=== PATIENT | male | born 1960 | race Caucasian/White ===

== ENCOUNTER 2023-06-22 14:25 | Emergency (ER) | payer MEDICAID ==
[~2023-06-22] VITALS: Ht 170.2 cm; Wt 70.0 kg
[2023-06-22 14:51] VITALS: BP 146/83; PULSE 82; RESP 18; TEMP 97.8; O2SAT 98
== END 2023-06-22 22:33 | disposition left against medical advice (07) ==
LOC: ER 14:25
DX: H53.8 Other visual disturbances (principal); Z53.21 Procedure and treatment not carried out due to patient leaving prior to being seen by health care provider
CPT/HCPCS: 99281

== ENCOUNTER 2023-08-08 06:21 | Inpatient (IN) | payer MEDICAID ==
[2023-08-08] VITALS (13 sets, daily range): BP systolic 116–222; BP diastolic 62–76; PULSE 80–101; RESP 14–18; TEMP 96.9–98.7; O2SAT 94–100
[~2023-08-08] VITALS: Ht 170.2 cm; Wt 75.0 kg
[2023-08-08 06:54] LABS: BASOPHILS # (AUTO) 0.1 X10'3 (0-0.2); BASOPHILS % (AUTO) 0.7 % (0-1); EOSINOPHILS # (AUTO) 0.1 X10'3 (0-0.9); EOSINOPHILS % (AUTO) 0.4 % (0-6); HEMATOCRIT 36.6 % (42.0-52.0); LYMPHOCYTES # (AUTO) 1.5 X10'3 (1.1-4.8); MEAN CORPUSCULAR HEMOGLOBIN 28.5 PG (27.0-31.0); MEAN CORPUSCULAR VOLUME 86.3 FL (78-98); MEAN PLATELET VOLUME 7.7 FL (7.4-10.4); MONOCYTES # (AUTO) 1.7 X10'3 (0-0.9); MONOCYTES % (AUTO) 8.7 % (2-12); NEUTROPHILS # (AUTO) 15.9 X10'3 (1.8-7.7); NEUTROPHILS % (AUTO) 82.2 % (42-75); PLATELET COUNT 452 X10'3 (140-440); RED BLOOD COUNT 4.23 X10'6 (4.70-6.10); RED CELL DISTRIBUTION WIDTH 13.9 % (11.5-14.5); WHITE BLOOD COUNT 19.3 X10'3 (4.5-11.0)
[2023-08-08] MEDS ORDERED: ondansetron/PF 4mg/2ml inj IV ONE (06:55)
[2023-08-08] MEDS ORDERED: normal saline 500ml IV soln 500 ML IV ONE (06:55)
[2023-08-08] MEDS ORDERED: morphine 4 MG/ML inj SYRINge IV ONE (06:55)
[2023-08-08] MEDS ORDERED: nitroGLYCERIN 1gm ointment UD TP ONE (06:55)
[2023-08-08 07:07] LABS: ALANINE AMINOTRANSFERASE 32 U/L (12-78); ALBUMIN 3.1 G/DL (3.4-5.0); ALBUMIN/GLOBULIN RATIO 0.7 (1.1-1.5); ALKALINE PHOSPHATASE 105 IU/L (46-116); ANION GAP 11 (8-16); ASPARTATE AMINO TRANSFERASE 13 U/L (10-37); BILIRUBIN,TOTAL 0.6 MG/DL (0.1-1.0); BLOOD UREA NITROGEN 16 MG/DL (7-18); BUN/CREATININE RATIO 16.5 (10.0-20.0); CALCIUM 8.8 MG/DL (8.5-10.1); CHLORIDE 99 MMOL/L (99-107); CREATININE 0.97 MG/DL (0.60-1.10); GLUCOSE 360 MG/DL (70-104); POTASSIUM 3.7 MMOL/L (3.5-5.1); SODIUM 132 MMOL/L (135-145); TOTAL PROTEIN 7.6 G/DL (6.4-8.2); eCRCL 73 ML/MIN; eGFR 78 ML/MIN
[2023-08-08 07:16] LABS: PRO BRAIN NATRIURETIC PEPTIDE 392 PG/ML (0-125)
[2023-08-08] MEDS ORDERED: dexamethasone sod phosphate 10mg/ml inj IV STA (10:17)
[2023-08-08] MEDS ORDERED: albuterol 2.5 MG/3 ML nebule NEB ONE (10:20)
[2023-08-08] MEDS ORDERED: azithromycin/NS 500mg/250ml 250 ML IV ONE (10:20)
[2023-08-08] MEDS ORDERED: CefTRIAXone 2gm/D5W 50ml BAG 50 ML IV ONE (10:20)
[2023-08-08] MEDS ORDERED: morphine 2 MG/ML inj. syringe IV PRN ×2 (11:00)
[2023-08-08] MEDS ORDERED: HYDROcodone/acetaminophen 5mg/325mg tablet PO PRN (11:00)
[2023-08-08] MEDS ORDERED: HYDROcodone/acetaminophen 10/325mg tab PO PRN (11:00)
[2023-08-08] MEDS ORDERED: magnesium 2GM in 50ml NS 50 ML IV PRN (11:00)
[2023-08-08] MEDS ORDERED: magnesium 4gm in 100ml NS 100 ML IV PRN (11:00)
[2023-08-08] MEDS ORDERED: potassium Cl 20 mEq SR tablet PO PRN ×2 (11:00)
[2023-08-08] MEDS ORDERED: potassium Cl 40MEQ/1/2NS 520ml 520 ML IV PRN (11:00)
[2023-08-08] MEDS ORDERED: magnesium Cl slow-release 64mg tablet PO PRN (11:00)
[2023-08-08] MEDS ORDERED: ondansetron/PF 4mg/2ml inj IV PRN (11:00)
[2023-08-08] MEDS ORDERED: acetaminophen 325mg tablet PO PRN ×2 (11:00)
[2023-08-08] MEDS ORDERED: albuterol 2.5 MG/3 ML nebule NEB PRN (11:15)
[2023-08-08] MEDS: normal saline 1000ml 1,000 ML IV SCH (11:20)
--- NOTE | 2023-08-08 12:43 | NUR ---
RT paged for n er bed 3. When RT arrived, pt being transported to stress lab and will be gone for 2 hours. Pt also has RT orders for admit so we will assess the pt when he is done in stress lab. At this time, pt is in no respiratory distress.
[2023-08-08] MEDS ORDERED: aminophylline inj. 10 ML IV ONE (13:09)
[2023-08-08] MEDS ORDERED: regadenoson 0.4mg/5ml syringe IV ONE (13:10)
--- NOTE | 2023-08-08 14:25 | NUR ---
Hospitalist aware of pts BG of 339.
[2023-08-08] MEDS ORDERED: MESSAGE TO PHARMACY PO ONE (14:30)
[2023-08-08] MEDS ORDERED: dextrose 50%-water 50ml dispensing syringe IV PRN ×2 (14:30)
[2023-08-08] MEDS ORDERED: glucagon, human recombinant 1mg kit SUBCUT PRN (14:30)
[2023-08-08] MEDS ORDERED: DEXTROSE 15 GM of carb/4 tabs (each vial/BOTTLE has 4 tablets) PO PRN ×2 (14:30)
--- NOTE | 2023-08-08 16:22 | NUR ---
Paged hospitalist regarding results of stress test, pt has not eaten today and is upset and requesting food.
--- NOTE | 2023-08-08 17:01 | NUR ---
Patient in room ED 3. I have received report from Rosio AGUIAR and had the opportunity to ask questions and assume patient care.
--- NOTE | 2023-08-08 18:42 | NUR ---
Patient in room PCU 3017. I have received report from Mckayla AGUIAR and had the opportunity to ask questions and assume patient care.
[2023-08-08] MEDS: insulin Lispro (HumaLOG) vial - multi-dose SQ SCH ×2 (20:34→23:30)
[2023-08-08] MEDS: enoxaparin 40mg/0.4ml syringe SQ SCH (20:54)
[2023-08-08] MEDS ORDERED: temazepam 15mg capsule PO PRN (21:00)
[2023-08-08] MEDS: insulin glargine (Lantus) pen - multi-dose SQ SCH (23:29)
[2023-08-09] VITALS (9 sets, daily range): BP systolic 112–137; BP diastolic 36–86; PULSE 59–95; RESP 14–18; TEMP 97.5–98.7; O2SAT 90–100
[2023-08-09] MEDS: normal saline 1000ml 1,000 ML IV SCH (04:30)
[2023-08-09 06:16] LABS: BASOPHILS % (AUTO) 0.2 % (0-1); EOSINOPHILS % (AUTO) 0 % (0-6); HEMATOCRIT 34.7 % (42.0-52.0); HEMOGLOBIN 11.4 g/dl (14.0-17.9); LYMPHOCYTES # (AUTO) 1.6 X10'3 (1.1-4.8); MEAN CORPUSCULAR HEMOGLOBIN 28.7 PG (27.0-31.0); MEAN CORPUSCULAR VOLUME 86.9 FL (78-98); MEAN PLATELET VOLUME 8.2 FL (7.4-10.4); MONOCYTES # (AUTO) 1.6 X10'3 (0-0.9); MONOCYTES % (AUTO) 8.9 % (2-12); NEUTROPHILS # (AUTO) 14.4 X10'3 (1.8-7.7); NEUTROPHILS % (AUTO) 81.9 % (42-75); PLATELET COUNT 453 X10'3 (140-440); RED BLOOD COUNT 3.99 X10'6 (4.70-6.10); RED CELL DISTRIBUTION WIDTH 13.9 % (11.5-14.5); WHITE BLOOD COUNT 17.6 X10'3 (4.5-11.0)
[2023-08-09 06:21] LABS: ALANINE AMINOTRANSFERASE 25 U/L (12-78); ALBUMIN 2.6 G/DL (3.4-5.0); ALBUMIN/GLOBULIN RATIO 0.6 (1.1-1.5); ALKALINE PHOSPHATASE 98 IU/L (46-116); ANION GAP 5 (8-16); ASPARTATE AMINO TRANSFERASE 13 U/L (10-37); BILIRUBIN,TOTAL 0.3 MG/DL (0.1-1.0); BLOOD UREA NITROGEN 32 MG/DL (7-18); BUN/CREATININE RATIO 32.7 (10.0-20.0); CALCIUM 8.9 MG/DL (8.5-10.1); CHLORIDE 100 MMOL/L (99-107); CREATININE 0.98 MG/DL (0.60-1.10); SODIUM 131 MMOL/L (135-145); TOTAL CARBON DIOXIDE 25.7 MMOL/L (24-32); TOTAL PROTEIN 6.9 G/DL (6.4-8.2); eCRCL 72 ML/MIN; eGFR 77 ML/MIN
[2023-08-09 06:39] LABS: GLUCOSE 421 MG/DL (70-104)
--- NOTE | 2023-08-09 07:00 | NUR ---
Patient in room PCU 3017. I have received report from Laurie AGUIAR and had the opportunity to ask questions and assume patient care.
--- NOTE | 2023-08-09 07:18 | NUR ---
Problems reprioritized. Patient report given, questions answered & plan of care reviewed with Mckayla AGUIAR.
[2023-08-09] MEDS: azithromycin/NS 500mg/250ml 250 ML IV SCH (07:50)
[2023-08-09] MEDS: CefTRIAXone 2gm/D5W 50ml BAG 50 ML IV SCH (07:50)
--- NOTE | 2023-08-09 07:59 | NUR ---
PAGER ID: [phone] MESSAGE: [phone]. Laurent Carty. Critical glucose of 421. Decreased from 517 and 445 last night. Mckayla [phone]
--- NOTE | 2023-08-09 08:21 | NUR ---
3017-A. Laurent Carty. Is it okay to add Carb Control to patient's diet? It's only heart healthy at this time. Mckayla [id number]
[2023-08-09] MEDS: insulin Lispro (HumaLOG) vial - multi-dose SQ SCH ×3 (09:36→20:26)
[2023-08-09] MEDS: insulin glargine (Lantus) pen - multi-dose SQ SCH (20:25)
[2023-08-09] MEDS: enoxaparin 40mg/0.4ml syringe SQ SCH (20:27)
[2023-08-10] MEDS: normal saline 1000ml 1,000 ML IV SCH (03:00)
[2023-08-10 06:42] LABS: ALANINE AMINOTRANSFERASE 22 U/L (12-78); ALBUMIN 2.6 G/DL (3.4-5.0); ALBUMIN/GLOBULIN RATIO 0.6 (1.1-1.5); ALKALINE PHOSPHATASE 83 IU/L (46-116); ANION GAP 6 (8-16); ASPARTATE AMINO TRANSFERASE 15 U/L (10-37); BILIRUBIN,TOTAL 0.3 MG/DL (0.1-1.0); BLOOD UREA NITROGEN 22 MG/DL (7-18); BUN/CREATININE RATIO 23.7 (10.0-20.0); CALCIUM 8.7 MG/DL (8.5-10.1); CHLORIDE 101 MMOL/L (99-107); CREATININE 0.93 MG/DL (0.60-1.10); GLUCOSE 292 MG/DL (70-104); POTASSIUM 3.8 MMOL/L (3.5-5.1); SODIUM 134 MMOL/L (135-145); TOTAL CARBON DIOXIDE 26.7 MMOL/L (24-32); TOTAL PROTEIN 6.9 G/DL (6.4-8.2); eCRCL 76 ML/MIN; eGFR 82 ML/MIN
--- NOTE | 2023-08-10 06:42 | NUR ---
Patient in room PCU 3017. I have received report from VAN AGUIAR and had the opportunity to ask questions and assume patient care.
[2023-08-10 07:00] VITALS: BP 127/73; PULSE 78; RESP 18; TEMP 97.7; O2SAT 100
[2023-08-10 07:15] LABS: BASOPHILS # (AUTO) 0.1 X10'3 (0-0.2); BASOPHILS % (AUTO) 1.3 % (0-1); EOSINOPHILS # (AUTO) 0.1 X10'3 (0-0.9); EOSINOPHILS % (AUTO) 1.6 % (0-6); HEMATOCRIT 35.4 % (42.0-52.0); HEMOGLOBIN 11.9 g/dl (14.0-17.9); LYMPHOCYTES % (AUTO) 35.7 % (21-51); MEAN CORPUSCULAR HEMOGLOBIN 29.3 PG (27.0-31.0); MEAN CORPUSCULAR HGB CONC 33.6 g/dL (33.0-36.5); MEAN CORPUSCULAR VOLUME 87.3 FL (78-98); MEAN PLATELET VOLUME 8.2 FL (7.4-10.4); MONOCYTES % (AUTO) 11.3 % (2-12); NEUTROPHILS # (AUTO) 4.3 X10'3 (1.8-7.7); NEUTROPHILS % (AUTO) 50.1 % (42-75); PLATELET COUNT 487 X10'3 (140-440); RED BLOOD COUNT 4.05 X10'6 (4.70-6.10); RED CELL DISTRIBUTION WIDTH 13.9 % (11.5-14.5); WHITE BLOOD COUNT 8.5 X10'3 (4.5-11.0)
[2023-08-10] MEDS: CefTRIAXone 2gm/D5W 50ml BAG 50 ML IV SCH (07:24)
[2023-08-10] MEDS: azithromycin/NS 500mg/250ml 250 ML IV SCH (07:24)
[2023-08-10 08:35] VITALS: RESP 16; O2SAT 97
[2023-08-10] MEDS ORDERED: METF-1203 PO (08:57)
[2023-08-10] MEDS ORDERED: LEVO-65 PO (08:57)
[2023-08-10] MEDS: insulin Lispro (HumaLOG) vial - multi-dose SQ SCH (08:59)
[2023-08-10 10:00] VITALS: BP 140/72; PULSE 75; RESP 20; TEMP 98.9; O2SAT 98
--- NOTE | 2023-08-10 13:13 | NUR ---
pt. alert, orientated, and stable upon discharge. pt. iv canula whole and intact upon removal. pt. educated on diabetes and new prescriptions. pt. left with all belongings. pt. safely escorted into taxi to [facility] from wheelchair.
== END 2023-08-10 13:06 | disposition home or self-care (01) | DRG 139 ==
LOC: ER 06:22 → ED HOLD 11:04 → PCU 3S 17:15
PROVIDERS: ADMIT Internal Medicine; ATTEND Internal Medicine
PROC: 4A02XM4 Measurement of Cardiac Total Activity, External Approach (ICD-10-PCS; principal; 2023-08-08)
PROC: 3E073KZ Introduction of Other Diagnostic Substance into Coronary Artery, Percutaneous Approach (ICD-10-PCS; 2023-08-08)
DX: J18.9 Pneumonia, unspecified organism (principal); D72.829 Elevated white blood cell count, unspecified; I25.10 Atherosclerotic heart disease of native coronary artery without angina pectoris; F17.210 Nicotine dependence, cigarettes, uncomplicated; E11.9 Type 2 diabetes mellitus without complications; Z20.822 Contact with and (suspected) exposure to COVID-19; I25.2 Old myocardial infarction; Z99.3 Dependence on wheelchair
CPT/HCPCS: 36415; 71045; 78452; 80053; 82948; 83605; 83880; 84145; 84484; 85025; 85651; 86140; 87040; 87081; 87502; 87503; 87811; 93017; 93306; 94760; 96361; 96365; 96375; 97116; 97161; 97530; 99285; A6258; A9500; J0280; J0456; J0696; J1100; J1650; J1815; J2270; J2405; J2785; J7030; J7040

== ENCOUNTER 2024-03-30 16:58 | Emergency (ER) | payer MEDICAID ==
[~2024-03-30] VITALS: Ht 172.7 cm; Wt 81.8 kg
[2024-03-30 17:32] LABS: MEAN PLATELET VOLUME 7.4 FL (7.4-10.4)
[2024-03-30 17:34] LABS: BASOPHILS # (AUTO) 0.2 X10'3 (0-0.2); BASOPHILS % (AUTO) 1.6 % (0-1); EOSINOPHILS # (AUTO) 0.4 X10'3 (0-0.9); EOSINOPHILS % (AUTO) 4.2 % (0-6); HEMATOCRIT 40.5 % (42.0-52.0); HEMOGLOBIN 13.6 g/dl (14.0-17.9); LYMPHOCYTES # (AUTO) 2.7 X10'3 (1.1-4.8); LYMPHOCYTES % (AUTO) 25.5 % (21-51); MEAN CORPUSCULAR HEMOGLOBIN 28.8 PG (27.0-31.0); MEAN CORPUSCULAR HGB CONC 33.6 g/dL (33.0-36.5); MEAN CORPUSCULAR VOLUME 85.9 FL (78-98); MONOCYTES % (AUTO) 9.6 % (2-12); NEUTROPHILS # (AUTO) 6.2 X10'3 (1.8-7.7); NEUTROPHILS % (AUTO) 59.1 % (42-75); PLATELET COUNT 383 X10'3 (140-440); RED BLOOD COUNT 4.72 X10'6 (4.70-6.10); RED CELL DISTRIBUTION WIDTH 14.6 % (11.5-14.5); WHITE BLOOD COUNT 10.6 X10'3 (4.5-11.0)
[2024-03-30 17:44] LABS: ALBUMIN 3.4 G/DL (3.4-5.0); ANION GAP 7 (8-16); BLOOD UREA NITROGEN 38 MG/DL (7-18); BUN/CREATININE RATIO 35.5 (10.0-20.0); CHLORIDE 102 MMOL/L (99-107); CREATININE 1.07 MG/DL (0.60-1.10); GLUCOSE 289 MG/DL (70-104); POTASSIUM 4.7 MMOL/L (3.5-5.1); PRO BRAIN NATRIURETIC PEPTIDE 161 PG/ML (0-125); SODIUM 136 MMOL/L (135-145); TOTAL CARBON DIOXIDE 26.9 MMOL/L (24-32); eCRCL 68 ML/MIN; eGFR 70 ML/MIN
[2024-03-30 20:33] VITALS: BP 140/77; PULSE 86; RESP 15; TEMP 98.4; O2SAT 97
== END 2024-03-30 20:39 | disposition home or self-care (01) ==
LOC: ER 16:59
DX: R07.9 Chest pain, unspecified (principal); R20.2 Paresthesia of skin; I25.10 Atherosclerotic heart disease of native coronary artery without angina pectoris; I25.2 Old myocardial infarction
CPT/HCPCS: 36415; 71045; 80048; 83880; 84484; 85025; 93005; 99285

== ENCOUNTER 2024-05-26 13:36 | Emergency (ER) | payer MEDICAID ==
[~2024-05-26] VITALS: Ht 172.7 cm; Wt 74.0 kg
[2024-05-26 13:38] VITALS: TEMP 97.7
[2024-05-26 15:23] LABS: BASOPHILS % (AUTO) 0.6 % (0-1); EOSINOPHILS # (AUTO) 0.5 X10'3 (0-0.9); EOSINOPHILS % (AUTO) 6.5 % (0-6); HEMATOCRIT 40.3 % (42.0-52.0); HEMOGLOBIN 13.6 g/dl (14.0-17.9); LYMPHOCYTES # (AUTO) 1.6 X10'3 (1.1-4.8); LYMPHOCYTES % (AUTO) 21.9 % (21-51); MEAN CORPUSCULAR HEMOGLOBIN 29.4 PG (27.0-31.0); MEAN CORPUSCULAR HGB CONC 33.7 g/dL (33.0-36.5); MEAN CORPUSCULAR VOLUME 87.3 FL (78-98); MEAN PLATELET VOLUME 7.4 FL (7.4-10.4); MONOCYTES # (AUTO) 0.8 X10'3 (0-0.9); MONOCYTES % (AUTO) 11.3 % (2-12); NEUTROPHILS # (AUTO) 4.4 X10'3 (1.8-7.7); NEUTROPHILS % (AUTO) 59.7 % (42-75); PLATELET COUNT 394 X10'3 (140-440); RED BLOOD COUNT 4.61 X10'6 (4.70-6.10); RED CELL DISTRIBUTION WIDTH 15.3 % (11.5-14.5); WHITE BLOOD COUNT 7.4 X10'3 (4.5-11.0)
[2024-05-26 15:48] LABS: ALBUMIN 3.3 G/DL (3.4-5.0); ANION GAP 8 (8-16); BLOOD UREA NITROGEN 17 MG/DL (7-18); BUN/CREATININE RATIO 18.9 (10.0-20.0); CALCIUM 8.7 MG/DL (8.5-10.1); CHLORIDE 106 MMOL/L (99-107); GLUCOSE 222 MG/DL (70-104); LIPASE 51 U/L (16-77); MAGNESIUM 1.9 MG/DL (1.5-2.4); POTASSIUM 4.2 MMOL/L (3.5-5.1); SODIUM 140 MMOL/L (135-145); TOTAL CARBON DIOXIDE 26.5 MMOL/L (24-32); eCRCL 81 ML/MIN; eGFR 85 ML/MIN
[2024-05-26 15:50] LABS: ETHANOL < 10 MG/DL (<10)
[2024-05-26 16:36] VITALS: BP 163/80; PULSE 73; RESP 16; O2SAT 99
[2024-05-26 16:40] LABS: BILIRUBIN,URINE NEGATIVE (Neg); CLARITY,URINE CLEAR (Clear); COLOR,URINE YELLOW (Yellow); GLUCOSE, URINE 500 mg/dl (Neg); KETONES,URINE NEGATIVE (Neg); LEUKOCYTE ESTERASE ,URINE NEGATIVE (Neg); NITRITES, URINE NEGATIVE (Neg); OCCULT BLOOD,URINE TRACE-INTACT (Neg); PROTEIN,URINE 100 mg/dl (Neg); UROBILINOGEN,URINE 0.2 E.U/dL (0.2-1.0)
[2024-05-26] MEDS: acetaminophen 325mg tablet PO ONE (16:40)
[2024-05-26 16:44] LABS: UA COLLECTION TYPE NON-SPECIFIED
[2024-05-26 16:46] LABS: BACTERIA,URINE FEW /HPF (Neg); MUCUS STRANDS FEW /LPF (Neg); RBC,URINE 0-2 /HPF (0-2); SQUAMOUS EPITHELIAL CELL,UR FEW /LPF (FEW); WBC,URINE 0-4 /HPF (0-4)
[2024-05-26 16:47] LABS: TRANSITIONAL EPI CELLS,URINE FEW /HPF
== END 2024-05-26 17:05 | disposition home or self-care (01) ==
LOC: ER 13:37
DX: G25.2 Other specified forms of tremor (principal); M79.602 Pain in left arm; I25.10 Atherosclerotic heart disease of native coronary artery without angina pectoris; I25.2 Old myocardial infarction
CPT/HCPCS: 36415; 80048; 80320; 81001; 83690; 83735; 85025; 99283